=== PATIENT | male | born 1950 | race Two or more races ===

== ENCOUNTER 2024-09-15 13:13 | Emergency (ER) | payer OTHER, MEDICAID, SELFPAY ==
[2024-09-15 13:35] VITALS: BP 163/79; PULSE 95; RESP 18; TEMP 37.1; O2SAT 95; BMI 24.9
--- NOTE | 2024-09-15 14:00 | PD.EDRME ---
Rapid Medical Screening Exam RME Arrival date/time: 09/15/24 13:13 Chief Complaint: Anxiety Vital signs: Vital Signs Temperature 98.7 F 09/15/24 13:35 Pulse Rate 95 09/15/24 13:35 Respiratory Rate 18 09/15/24 13:35 Blood Pressure 163/79 H 09/15/24 13:35 Pulse Oximetry (%) 95 09/15/24 13:35 Oxygen Delivery Method Room Air 09/15/24 13:35 Pulse ox is 95% room air Vital signs reviewed by provider: Yes RME Narrative: 74-year-old male presents to the ED right sensation having an empty feeling that knaws at his gut. Began 1 week ago. Patient does not know why he has the anxiety sensation or feeling. As per family member patient is no longer watering his trees, feeding the dogs.
[2024-09-15 14:26] LABS: Basophils # (Auto) 0.1 Thou/mm3 (0.0-0.2); Basophils % (Auto) 1 % (0-2.5); Eosinophils # (Auto) 0.0 Thou/mm3 (0.0-0.5); Eosinophils % (Auto) 0 % (0-10); Hematocrit 48.2 % (41.0-53.0); Hemoglobin 16.6 g/dL (13.5-16.0); Immature Granulocytes Auto 0.04 Thou/mm3 (0.00-0.00); Lymphocytes # (Auto) 2.3 Thou/mm3 (1.0-4.8); Lymphocytes % (Auto) 22 % (10-50); Mean Corpuscular HGB Conc 34.4 g/dl (31.0-37.0); Mean Corpuscular Hemoglobin 32.2 pg (25.0-35.0); Mean Corpuscular Volume 94 fL (80-100); Monocytes # (Auto) 0.5 Thou/mm3 (0.0-0.8); Monocytes % (Auto) 5 % (0-12); Neutrophils # (Auto) 7.6 Thou/mm3 (1.8-7.7); Neutrophils % (Auto) 72 % (37-80); Nucleated Red Blood Cell # 0.00 Thou/mm3 (0.00-0.00); Nucleated Red Blood Cell % 0 /100 WBC (0); Platelet Count 165 Thou/mm3 (140-440); RDW Standard Deviation 43.4 fL (35.1-43.9); Red Blood Count 5.15 Miln/mm3 (4.50-5.90); White Blood Count 10.5 Thou/mm3 (3.8-10.6)
[2024-09-15 14:49] LABS: Alcohol, Urine Negative (Negative); Amphetamine/Methamp Scrn,U Negative (Negative); Barbiturate Screen,Urine Negative (Negative); Benzodiazepines Screen,Urine Negative (Negative); Benzoylecgonine Screen, Ur Negative (Negative); Fentanyl Screen,Urine Negative (Negative); Opiate Screen,Urine Positive (Negative); THC Screen,Urine Negative (Negative)
[2024-09-15 14:50] LABS: Acetaminophen 2.4 mcg/mL (10.0-20.0); Alanine Aminotransferase 12 U/L (10-49); Albumin, Serum 4.6 gm/dL (3.4-4.8); Albumin/Globulin Ratio 1.8 (1.2-2.2); Alcohol, Blood Medical < 10.0 mg/dL (0-10.0); Alkaline Phosphatase 82 U/L (46-116); Anion Gap 5 (7-16); Aspartate Amino Transferase 18 U/L (0-34); BUN/Creatinine Ratio 9 Ratio (12-20); Bilirubin,Total 0.5 mg/dL (0.3-1.2); Blood Urea Nitrogen 9 mg/dL (9-23); Calcium 9.4 mg/dL (8.3-10.6); Calcium (Corrected) 9.4 mg/dL (8.5-10.1); Carbon Dioxide 24.1 mMol/L (20.0-31.0); Chloride 108 mMol/L (98-107); Creatinine (Component) 1.0 mg/dL (0.6-1.3); Estimated Creatinine Clearance 60.3 mL/min (>60); Globulin 2.6 gm/dL (2.3-3.5); Glucose 128 mg/dL (74-106); LDH (Lactate Dehydrogenase) 161 U/L (120-246); Osmolality,Calculated 274 (275-295); Potassium 4.0 mMol/L (3.4-5.1); Procalcitonin 0.07 ng/ml (0.0-0.49); Sodium 137 mMol/L (136-145); Total Protein 7.2 gm/dL (5.7-8.2); eGFR > 60 See Note
--- NOTE | 2024-09-15 15:36 | PD.EDANX ---
ED Anxiety RME/HPI General Chief Complaint: Anxiety Stated Complaint: LOTS OF ANXIETY WITH LEG / ARM NUMBNESS Time Seen by Provider: 09/15/24 15:35 Source: patient and family Arrival date/time: 09/15/24 13:13 Mode of arrival: ambulatory Limitations: no limitations RME / HPI RME / HPI narrative: 74-year-old male presents to the ED right sensation having an empty feeling that knaws at his gut. Began 1 week ago. Patient does not know why he has the anxiety sensation or feeling. As per family member patient is no longer watering his trees, feeding the dogs. MD complaint: anxiety Onset (ago): week(s) (1 week) Symptoms: dyspnea Severity: moderate Place: home Provoking factors: none known and emotional stress Associated symptoms: denies other symptoms Related Data Previous Rx's ?Medication ?Instructions ?Recorded hydrocodone 5 mg-acetaminophen 325 1 tab PO BID PRN pain #10 tabs 09/28/19 mg tablet ([place]) tamsulosin 0.4 mg capsule (Flomax) 0.4 mg PO QDAY #7 caps 09/28/19 hydroxyzine HCl 25 mg tablet 25 mg PO TID PRN anxiety #20 tabs 09/15/24 Allergies Allergy/AdvReac Type Severity Reaction Status Date / Time Penicillins Allergy Unknown Verified 09/15/24 13:16 Review of Systems Constitutional Constitutional: Reports system reviewed and no additional complaints, except as documented Eyes Eyes: Reports system reviewed and no additional complaints, except as documented, Denies dry eyes, Denies exophthalmos and Reports floaters Cardiovascular Cardiovascular: Denies chest pain with activity and Denies claudication ED Exam General Limitations: Present no limitations General appearance: Present alert and in no apparent distress Head Head exam: Present atraumatic Eye Eye exam: Present normal appearance and EOMI ENT ENT exam: Present normal exam, normal oropharynx and mucous membranes moist Neck Neck exam: Present normal inspection, full ROM and trachea midline Chest Chest inspection: Present normal inspection and symmetric chest wall rise Respiratory Respiratory exam: Present normal lung sounds bilaterally Cardiovascular Cardiovascular exam: Present regular rate, normal rhythm and normal heart sounds Rectal Exam Rectal exam: Present deferred Extremities Exam Extremities exam: Present normal inspection and full ROM Back Exam Back exam: Present normal inspection and full ROM Neurological Exam Neurological exam: Present alert and oriented X3 Psychiatric Psychiatric exam: Present normal affect and normal mood Skin Skin exam: Present warm, dry, intact and normal color Course Course Course Narrative: Acetaminophen, alcohol, CBC, CMP, drug screen, LDH, procalcitonin Quality Measures none Orders Category Date Time Status Acetaminophen Stat Lab 09/15/24 14:11 Completed Alcohol, Blood Medical Stat Lab 09/15/24 14:11 Completed Alcohol, Urine Stat Lab 09/15/24 14:26 Completed CBC Stat Lab 09/15/24 14:11 Completed CMP [Comprehensive Metabolic Panel] Stat Lab 09/15/24 14:11 Completed Drug Screen,Urine Stat Lab 09/15/24 14:26 Completed LDH (Lactate Dehydrogenase) Stat Lab 09/15/24 14:11 Completed Procalcitonin Stat Lab 09/15/24 14:11 Completed Vital Signs Vital signs: Vital Signs Temperature 98.7 F 09/15/24 13:35 Pulse Rate 95 09/15/24 13:35 Respiratory Rate 18 09/15/24 13:35 Blood Pressure 163/79 H 09/15/24 13:35 Pulse Oximetry (%) 95 09/15/24 13:35 Oxygen Delivery Method Room Air 09/15/24 13:35 pulse ox room air is 95% Anxiety MDM Narrative MDM Narrative: Patient will be discharged in no apparent distress. Patient will have a community sources list made available to him so that he may find a psychologist or psychiatrist who will help him with his anxiety. Or he may follow-up with primary care physician for referral to psychiatric services Patient data External records reviewed:: Other (specify) (NA) Clinical information provided by:: none (NA) Social determinants that could affect healthcare access:: none (NA) Patient has the following chronic illnesses:: NA How is presenting disease/condition affected by chronic disease/condition?: no chronic disease Evaluation data The following diagnostics were reviewed and interpreted by me:: other (specify) (NA) Lab and/or radiology exams considered but not ordered:: NA Interpretation Summary: NA Medications / Prescriptions Medications or Prescriptions considered but not ordered:: NA Medication administrations:: NA Consultations Consultation(s) initiated? (list below): No Diagnosis Most likely diagnosis given after review of the tests above:: NA Admission Indicated Admission indicated?: not indicated Explain why admission is indicated or not indicated:: NA Admission Request Was there a request for admission?: No Admission Attestation Admission request attestation: NA Disposition Plan Disposition Plan: Discharge Discharge Attestation Discharge Attestation: The patient and all family members were given an opportunity to ask questions and understood the discharge instructions. Discharge instructions specifically effects, indications for sooner follow up or return to the emergency department, and the expected course of current diagnosis. Patient condition: Stable Discharge Plan Plan Patient Disposition: HOME (Self Care) Discharge Disposition comment: Discharge in no apparent distress Patient condition on transfer: Stable Prescriptions/Referrals Prescriptions/Med Rec: New hydroxyzine HCl 25 mg tablet 25 mg PO TID PRN (Reason: anxiety) Qty: 20 0RF No Action tamsulosin [Flomax] 0.4 mg capsule 0.4 mg PO QDAY Qty: 7 0RF hydrocodone-acetaminophen [[place]] 5-325 mg tablet 1 tab PO BID MDD 10mg PRN (Reason: pain) Qty: 10 0RF Referrals: Rosamaria Hylton MD [Primary Care Provider] - In 1 week Problem List Clinical Impression: Acute anxiety Patient/Caregiver Discharge Instructions Discharge Activity: activity as tolerated Education Materials: Anxiety Disorders Tx Therapy Print Language: Israeli Stand Alone Forms: Shayna Award Info., Patient Portal Info Letter PA/SYSTEM TECHNOLOGIST Supervising Physician PA/SYSTEM TECHNOLOGIST Supervising Physician: LOGAN
[2024-09-15 15:48] VITALS: BP 149/80; PULSE 81; RESP 20; TEMP 37.1; O2SAT 96
== END 2024-09-15 15:50 | disposition home or self-care (01) ==
PROVIDERS: Physician Assistant; Emergency Provider Family Medicine; PCP Family Medicine
DX: F41.9 Anxiety disorder, unspecified (principal)
CPT/HCPCS: 36415; 80053; 80307; 80320; 80329; 83615; 84145; 85025; 99283; G0480